=== PATIENT | male | born 1940 | race African-American/Black ===

== ENCOUNTER 2022-03-06 18:16 | Inpatient (IN) | payer MEDICARE ==
[~2022-03-06 18:16] MED LIST: Iopamidol-370 76% 500 ML 1 ML ONE
[2022-03-06] MEDS ORDERED: FENTANYL 50 MCG/ML 1 ML VIAL ONE ×2 (18:41→19:15)
[2022-03-06] MEDS ORDERED: Succinylcholine Chloride 100 MG/5 ML SYRINGE FS ONE (18:45)
[2022-03-06 18:59] LABS: #Monocytes 0.4 thou/uL (0.11-0.59); #Neutrophils 4.7 thou/uL (1.40-6.50); %Basophils 0.2 % (0.0-1.0); %Eosinophils 0.3 % (0.0-10.0); %Lymphocytes 15.8 % (21.0-51.0); %Neutrophils 77.7 % (42.0-75.0); Hemoglobin 14.5 g/dL (14.0-18.0); Mean Corpuscular Hemoglobin 34.7 pg (27.0-31.0); Mean Platelet Volume 7.6 fL (7.4-10.4); Platelet Count 414 10x3/uL (130-400); RBC Distribution Width 12.3 % (11.5-14.5); Red Blood Cell (RBC) Count 4.17 mill/uL (4.70-6.10)
[2022-03-06 19:19] LABS: ALT (SGPT) Less than 7 U/L (8-55); AST (SGOT) 23 U/L (5-34); Albumin 3.6 g/dL (3.4-4.8); Alkaline Phosphatase 65 U/L (40-110); Anion Gap 27 mmol/L (10-20); BUN (Urea Nitrogen) 84 mg/dL (8.4-25.7); Bilirubin, Total 0.6 mg/dL (0.2-1.2); Calc. Creatinine Clearance 0 mL/min (70-130); Calcium 9.7 mg/dL (7.8-10.44); Carbon Dioxide 10 mmol/L (23-31); Chloride 99 mmol/L (98-107); Estimated GFR 15; Globulin 2.7 g/dL (2.4-3.5); Glucose 193 mg/dL (83-110); Potassium 4.2 mmol/L (3.5-5.1); Protein, Total 6.3 g/dL (5.8-8.1); Sodium 132 mmol/L (136-145)
[2022-03-06] MEDS ORDERED: Fentanyl CADD 100 ML IV SCH (19:30)
[2022-03-06 19:33] LABS: Analyzer IN Cardio ER; Base Excess (BEa) -10.3 mEq/L (-2.0 to +3.0); Carboxyhemoglobin (COHb) 0.7 gm% (0.0-3.0); O2 Tension (PaO2), arterial 597.5 mmHg (> 60.0); Potassium - ABG Lab 3.26 mmol/L (3.70-5.30); pH, Arterial 7.39 (7.35-7.45)
[2022-03-06 19:41] LABS: CKMB 1.4 ng/mL (0-6.6)
[2022-03-06 19:58] LABS: Actual Bicarbonate (HCO3a) 12.4 mEq/L (22-28); CO2 Tension 20.9 mmHg (35.0-45.0)
[2022-03-06 19:59] LABS: Puncture Site LBA
[2022-03-06 20:00] LABS: ALV-art Gradient 89.375 mmHg (0-20)
[2022-03-06 20:35] LABS: Bacteria/HPF None Seen HPF (None Seen); Bilirubin Negative (Negative); Blood, Urine 2+ (Negative); Clarity Clear (Clear); Glucose, Urine (Dipstick) Normal (Negative); Ketone, Urine Trace mg/dL (Negative); Leukocyte Negative Leu/uL (Negative); Nitrite Negative (Negative); Protein, Urine (Dipstick) 50 mg/dL (Neg-Trace); Specific Gravity, Urine 1.018 (1.002-1.036); Squamous Epithelial 0-3 HPF (0-3); WBC/HPF 0-3 HPF (0-3)
[2022-03-06 21:06] LABS: SARS-CoV-2 NAA Rapid Test Not Detected (NotDetected)
[2022-03-06] MEDS ORDERED: Pantoprazole 40 MG VIAL ONE (21:23)
[2022-03-06] MEDS ORDERED: Vancomycin 1 GM/200 ML (FROZEN) BAG ONE (21:31)
[2022-03-06] MEDS ORDERED: Enoxaparin Sodium 40 MG/0.4 ML SYRINGE ONE (21:32)
[2022-03-06] MEDS ORDERED: Piperacillin/Tazobactam 4.5 GM VIAL ONE (21:32)
[2022-03-06] MEDS ORDERED: Pantoprazole 80 MG in Sodium Chloride 0.9% 100 ML IVPB SCH (21:45)
[2022-03-06 21:59] LABS: Lactic Acid 4.7 mmol/L (0.5-2.2)
[2022-03-06] MEDS ORDERED: Electrolyte Replacement Protocol 1 EACH IVPB ONE (22:14)
[2022-03-06] MEDS ORDERED: Ventilator Sedation Protocol 1 EACH FS SCH (22:15)
[2022-03-06] MEDS ORDERED: Sodium Chloride 0.9% 1,000 ML IV SCH ×2 (22:30)
[2022-03-06] MEDS ORDERED: Propofol 1,000 MG/100 ML VIAL IV PRN (22:30)
[2022-03-06] MEDS ORDERED: DISCONTINUE PREVIOUS NARCOTIC PAIN MEDICATIONS AND BENZODIAZEPINES FS SCH (22:30)
[2022-03-06] MEDS ORDERED: Propofol BOLUS 1,000 MG/100 ML VIAL IV PRN (22:30)
[2022-03-06] MEDS ORDERED: Fentanyl BOLUS 250 ML IVPB PRN (22:30)
[2022-03-06] MEDS ORDERED: Morphine 4 MG/ML VIAL SLOW IVP PRN (22:30)
[2022-03-06] MEDS ORDERED: Midazolam HCl 2 mg/2 ml Vial SLOW IVP PRN (22:30)
[2022-03-06] MEDS: NOREPINEPHRINE 8 MG/250 ML-D5W 250 ML IVPB PRN (22:54)
[2022-03-07 00:50] LABS: Actual Bicarbonate (HCO3a) 16.3 mEq/L (22-28); Base Excess (BEa) -5.7 mEq/L (-2.0 to +3.0); Calcium, Ionized (arterial) 1.05 mmol/L (1.12-1.30); Carboxyhemoglobin (COHb) 0.1 gm% (0.0-3.0); Hemoglobin (Hb) 14.3 g/dL (14.0-18.0); O2 Tension (PaO2), arterial 176.1 mmHg (> 60.0); Potassium - ABG Lab 3.86 mmol/L (3.70-5.30); pH, Arterial 7.45 (7.35-7.45)
[2022-03-07 00:52] LABS: Puncture Site LBA
[2022-03-07] MEDS: Piperacillin/Tazobactam 3.375 GM in Sodium Chloride 0.9% 100 ML IVPB SCH ×2 (01:49→14:11)
[2022-03-07] MEDS: NOREPINEPHRINE 8 MG/250 ML-D5W 250 ML IVPB PRN ×2 (01:49→08:43)
[2022-03-07] MEDS ORDERED: Pantoprazole 80 MG, Admixture Fee 1 EACH in Sodium Chloride 0.9% 100 ML IVPB SCH (06:30)
[2022-03-07] MEDS: Pantoprazole 40 MG VIAL IVP SCH (09:45)
[2022-03-07] MEDS: Heparin 5,000 UNITS/ML VIAL SC SCH ×2 (09:45→19:57)
[2022-03-07] MEDS: Lactated Ringer's 1,000 ML IV SCH ×2 (09:45→19:57)
[2022-03-07] MEDS: Senokot S 8.6-50 MG TAB PO SCH (19:57)
[2022-03-08] MEDS: Piperacillin/Tazobactam 3.375 GM in Sodium Chloride 0.9% 100 ML IVPB SCH ×2 (01:41→14:16)
[2022-03-08] MEDS: Lactated Ringer's 1,000 ML IV SCH (04:11)
[2022-03-08 04:45] LABS: #Lymphocytes 0.7 thou/uL (1.20-3.40); #Monocytes 0.4 thou/uL (0.11-0.59); #Neutrophils 6.6 thou/uL (1.40-6.50); %Lymphocytes 9.2 % (21.0-51.0); %Monocytes 4.6 % (0.0-10.0); %Neutrophils 86.2 % (42.0-75.0); Hemoglobin 10.7 g/dL (14.0-18.0); Mean Corpuscular HGB CONC 32.4 g/dL (32.0-36.0); Mean Corpuscular Hemoglobin 34.2 pg (27.0-31.0); Mean Platelet Volume 8.4 fL (7.4-10.4); Platelet Count 198 10x3/uL (130-400); RBC Distribution Width 12.3 % (11.5-14.5); Red Blood Cell (RBC) Count 3.13 mill/uL (4.70-6.10); White Blood Cell (WBC) Count 7.6 10x3/uL (4.8-10.8)
[2022-03-08 04:58] LABS: Anion Gap 17 mmol/L (10-20); BUN (Urea Nitrogen) 78 mg/dL (8.4-25.7); Calc. Creatinine Clearance 7 mL/min (70-130); Calcium 7.6 mg/dL (7.8-10.44); Carbon Dioxide 19 mmol/L (23-31); Chloride 97 mmol/L (98-107); Estimated GFR 13; Glucose 75 mg/dL (83-110); Potassium 4.2 mmol/L (3.5-5.1); Sodium 129 mmol/L (136-145)
[2022-03-08 06:51] LABS: Actual Bicarbonate (HCO3a) 18.5 mEq/L (22-28); Base Excess (BEa) -5.2 mEq/L (-2.0 to +3.0); CO2 Tension 30.5 mmHg (35.0-45.0); Calcium, Ionized (arterial) 1.04 mmol/L (1.12-1.30); Carboxyhemoglobin (COHb) 0.1 gm% (0.0-3.0); Hemoglobin (Hb) 11.7 g/dL (14.0-18.0); Potassium - ABG Lab 4.13 mmol/L (3.70-5.30)
[2022-03-08 06:52] LABS: ALV-art Gradient 130.075 mmHg (0-20); Puncture Site RRA
[2022-03-08] MEDS: Pantoprazole 40 MG VIAL IVP SCH (09:04)
[2022-03-08] MEDS: Polyethylene Glycol 3350 17 GM Packet PER TUBE SCH (09:04)
[2022-03-08] MEDS: Senokot S 8.6-50 MG TAB PO SCH ×2 (09:04→20:59)
[2022-03-08] MEDS: Heparin 5,000 UNITS/ML VIAL SC SCH ×2 (09:04→21:05)
[2022-03-08] MEDS ORDERED: Furosemide 20 MG/2 ML VIAL SLOW IVP SCH (09:45)
[2022-03-08] MEDS: Scopolamine 1.5 mg/72 hour Patch TD SCH (10:18)
[2022-03-08 17:50] LABS: Creatinine, Urine Less than 20.00 mg/dL (63-166); Protein, Urine Random Quant 26 mg/dL (1-14); Sodium, Urine 94 mmol/L (Not Available); Urea Nitrogen, Random Urine 157 mg/dl
[2022-03-08 18:13] LABS: Albumin 2.4 g/dL (3.4-4.8); Anion Gap 18 mmol/L (10-20); BUN (Urea Nitrogen) 79 mg/dL (8.4-25.7); BUN/Creatinine Ratio 17.83; CK (CPK) 83 U/L (30-200); Calc. Creatinine Clearance 7 mL/min (70-130); Calcium 7.7 mg/dL (7.8-10.44); Carbon Dioxide 18 mmol/L (23-31); Chloride 98 mmol/L (98-107); Estimated GFR 13; Glucose 68 mg/dL (83-110); Phosphorus 4.9 mg/dL (2.3-4.7); Potassium 4.4 mmol/L (3.5-5.1); Sodium 130 mmol/L (136-145)
[2022-03-08] MEDS ORDERED: Dextrose 5%-Lactated Ringers 1,000 ML IV SCH (18:45)
[2022-03-08] MEDS: Sodium Bicarbonate Tab 325 MG TAB PO SCH (20:59)
[2022-03-08] MEDS: Albumin 25% 25 GM/100 ML BOT IVPB SCH (21:05)
[2022-03-09] MEDS ORDERED: Sodium Bicarb 50 MEQ/50 ML Abboject 8.4% SYRINGE ONE (01:13)
[2022-03-09] MEDS ORDERED: Atropine Sulfate 1 mg/10 ml Syringe ONE (01:13)
[2022-03-09] MEDS ORDERED: EPINEPHrine 1 MG/10 ML Abboject SYRINGE ONE (01:13)
[2022-03-09 01:26] LABS: Actual Bicarbonate (HCO3a) 18.8 mEq/L (22-28); Base Excess (BEa) -7.2 mEq/L (-2.0 to +3.0); CO2 Tension 39.5 mmHg (35.0-45.0); Calcium, Ionized (arterial) 1.01 mmol/L (1.12-1.30); Carboxyhemoglobin (COHb) 0.3 gm% (0.0-3.0); Hemoglobin (Hb) 10.6 g/dL (14.0-18.0); O2 Tension (PaO2), arterial 84.6 mmHg (> 60.0)
[2022-03-09 01:35] LABS: Puncture Site LRA
[2022-03-09 01:37] LABS: ALV-art Gradient 579.025 mmHg (0-20)
[2022-03-09] MEDS ORDERED: Morphine 4 MG/ML VIAL SLOW IVP PRN (01:45)
[2022-03-09] MEDS ORDERED: Fentanyl CADD 100 ML IV SCH (01:45)
[2022-03-09] MEDS ORDERED: NOREPINEPHRINE 8 MG/250 ML-D5W 250 ML IVPB SCH (01:45)
[2022-03-09] MEDS ORDERED: Fentanyl BOLUS 250 ML IVPB PRN (01:45)
[2022-03-09] MEDS ORDERED: Ventilator Sedation Protocol 1 EACH FS SCH (01:45)
[2022-03-09] MEDS ORDERED: Propofol 1,000 MG/100 ML VIAL IV PRN (01:45)
[2022-03-09] MEDS ORDERED: Propofol BOLUS 1,000 MG/100 ML VIAL IV PRN (01:45)
[2022-03-09] MEDS ORDERED: Fentanyl CADD 100 ML ONE (01:49)
[2022-03-09 01:54] LABS: Band 20 % (5-11); Hemoglobin 9.5 g/dL (14.0-18.0); Lymphocytes 31 % (21-51); MDiff Complete? YES; Mean Corpuscular HGB CONC 34.1 g/dL (32.0-36.0); Mean Corpuscular Hemoglobin 35.9 pg (27.0-31.0); Mean Platelet Volume 8.3 fL (7.4-10.4); Monocytes 3 % (0-10); Neutrophil 46 % (42-75); Platelet Count 192 10x3/uL (130-400); RBC Distribution Width 12.2 % (11.5-14.5); Red Blood Cell (RBC) Count 2.65 mill/uL (4.70-6.10)
[2022-03-09 01:57] LABS: Lactic Acid 5.7 mmol/L (0.5-2.2)
[2022-03-09] MEDS: Albumin 25% 25 GM/100 ML BOT IVPB SCH ×4 (02:03→23:15)
[2022-03-09 02:05] LABS: Anion Gap 23 mmol/L (10-20); BUN (Urea Nitrogen) 83 mg/dL (8.4-25.7); Calc. Creatinine Clearance 7 mL/min (70-130); Calcium 7.7 mg/dL (7.8-10.44); Carbon Dioxide 17 mmol/L (23-31); Chloride 97 mmol/L (98-107); Estimated GFR 12; Glucose 150 mg/dL (83-110); Magnesium 1.8 mg/dL (1.6-2.6); Potassium 4.3 mmol/L (3.5-5.1); Sodium 133 mmol/L (136-145)
[2022-03-09 02:10] LABS: Troponin I 0.143 ng/mL (< 0.028)
[2022-03-09] MEDS: Piperacillin/Tazobactam 3.375 GM in Sodium Chloride 0.9% 100 ML IVPB SCH ×2 (02:13→15:23)
[2022-03-09 02:54] LABS: ALT (SGPT) 12 U/L (8-55); AST (SGOT) 29 U/L (5-34); Albumin 2.5 g/dL (3.4-4.8); Alkaline Phosphatase 42 U/L (40-110); Bilirubin, Direct 0.2 mg/dL (0.1-0.3); Bilirubin, Total 0.6 mg/dL (0.2-1.2); Protein, Total 4.8 g/dL (5.8-8.1)
[2022-03-09] MEDS: Sodium Bicarbonate 150 MEQ in Dextrose 5% in Water 1,000 ML IV SCH ×2 (03:29→15:27)
[2022-03-09 04:48] LABS: Lactic Acid 2.8 mmol/L (0.5-2.2)
[2022-03-09 04:52] LABS: Magnesium 1.8 mg/dL (1.6-2.6)
[2022-03-09 04:55] LABS: Troponin I 0.136 ng/mL (< 0.028)
[2022-03-09 08:59] LABS: Iron Less than 8 ug/dL (65-175); Iron Binding Capacity, Total 85 mcg/dL (261-462)
[2022-03-09 09:01] LABS: Troponin I 0.147 ng/mL (< 0.028)
[2022-03-09] MEDS: Heparin 5,000 UNITS/ML VIAL SC SCH ×2 (09:42→20:54)
[2022-03-09] MEDS: Pantoprazole 40 MG VIAL IVP SCH (09:46)
[2022-03-09] MEDS: Sodium Bicarbonate Tab 325 MG TAB PO SCH ×3 (09:58→20:54)
[2022-03-09] MEDS: Polyethylene Glycol 3350 17 GM Packet PER TUBE SCH (09:58)
[2022-03-09] MEDS: Senokot S 8.6-50 MG TAB PO SCH ×2 (10:01→20:54)
[2022-03-10] MEDS: Piperacillin/Tazobactam 3.375 GM in Sodium Chloride 0.9% 100 ML IVPB SCH ×2 (01:10→15:10)
[2022-03-10] MEDS: Sodium Bicarbonate 150 MEQ in Dextrose 5% in Water 1,000 ML IV SCH (01:34)
[2022-03-10 04:32] LABS: Anion Gap 22 mmol/L (10-20); BUN (Urea Nitrogen) 75 mg/dL (8.4-25.7); Calc. Creatinine Clearance 7 mL/min (70-130); Calcium 7.9 mg/dL (7.8-10.44); Carbon Dioxide 26 mmol/L (23-31); Chloride 88 mmol/L (98-107); Estimated GFR 12; Glucose 133 mg/dL (83-110); Magnesium 1.9 mg/dL (1.6-2.6); Potassium 3.2 mmol/L (3.5-5.1); Sodium 133 mmol/L (136-145)
[2022-03-10] MEDS: Albumin 25% 25 GM/100 ML BOT IVPB SCH (05:18)
[2022-03-10 05:53] LABS: #Lymphocytes 0.4 thou/uL (1.20-3.40); #Monocytes 0.2 thou/uL (0.11-0.59); #Neutrophils 2.4 thou/uL (1.40-6.50); %Eosinophils 0.1 % (0.0-10.0); %Lymphocytes 13.9 % (21.0-51.0); %Monocytes 5.2 % (0.0-10.0); %Neutrophils 80.7 % (42.0-75.0); Hemoglobin 6.8 g/dL (14.0-18.0); Mean Corpuscular HGB CONC 36.3 g/dL (32.0-36.0); Mean Corpuscular Hemoglobin 37.8 pg (27.0-31.0); Mean Platelet Volume 8.6 fL (7.4-10.4); Platelet Count 110 10x3/uL (130-400); Platelet Morphology Comment Appears Decreased; Red Blood Cell (RBC) Count 1.81 mill/uL (4.70-6.10)
[2022-03-10] MEDS: Dextrose 5%-Lactated Ringers 1,000 ML IV SCH ×2 (08:19→21:43)
[2022-03-10] MEDS ORDERED: Potassium Chloride 20 MEQ in Premix Bag 1 BAG IVPB SCH ×2 (08:30)
[2022-03-10] MEDS: Polyethylene Glycol 3350 17 GM Packet PER TUBE SCH (08:34)
[2022-03-10] MEDS: Sodium Bicarbonate Tab 325 MG TAB PO SCH ×3 (08:34→22:29)
[2022-03-10] MEDS: Heparin 5,000 UNITS/ML VIAL SC SCH (08:34)
[2022-03-10] MEDS: Senokot S 8.6-50 MG TAB PO SCH ×3 (08:34→22:29)
[2022-03-10] MEDS: Pantoprazole 40 MG VIAL IVP SCH (08:35)
[2022-03-10 15:04] LABS: Hemoglobin 6.9 g/dL (14.0-18.0)
[2022-03-11] MEDS: Piperacillin/Tazobactam 3.375 GM in Sodium Chloride 0.9% 100 ML IVPB SCH ×2 (01:22→14:10)
[2022-03-11] MEDS: Dextrose 5%-Lactated Ringers 1,000 ML IV SCH ×2 (01:23→14:47)
[2022-03-11] MEDS: Morphine CADD 100 ML IVPB SCH (06:16)
[2022-03-11 08:06] LABS: #Lymphocytes 0.6 thou/uL (1.20-3.40); #Monocytes 0.3 thou/uL (0.11-0.59); %Eosinophils 0.8 % (0.0-10.0); %Lymphocytes 12.1 % (21.0-51.0); %Monocytes 5.4 % (0.0-10.0); %Neutrophils 81.7 % (42.0-75.0); Hemoglobin 8.1 g/dL (14.0-18.0); Mean Corpuscular HGB CONC 32.4 g/dL (32.0-36.0); Mean Corpuscular Hemoglobin 35.4 pg (27.0-31.0); Mean Platelet Volume 8.6 fL (7.4-10.4); Platelet Count 95 10x3/uL (130-400); RBC Distribution Width 12.4 % (11.5-14.5); White Blood Cell (WBC) Count 4.9 10x3/uL (4.8-10.8)
[2022-03-11 08:24] LABS: Anion Gap 20 mmol/L (10-20); BUN (Urea Nitrogen) 64 mg/dL (8.4-25.7); Calc. Creatinine Clearance 8 mL/min (70-130); Calcium 8.2 mg/dL (7.8-10.44); Carbon Dioxide 26 mmol/L (23-31); Chloride 90 mmol/L (98-107); Estimated GFR 12; Glucose 145 mg/dL (83-110); Magnesium 1.6 mg/dL (1.6-2.6); Potassium 3.3 mmol/L (3.5-5.1); Sodium 133 mmol/L (136-145)
[2022-03-11] MEDS ORDERED: Magnesium Sulfate 4 GM in Sodium Chloride 0.9% 250 ML 250 ML IVPB SCH (08:30)
[2022-03-11] MEDS ORDERED: Potassium Chloride 40 MEQ in Premix Bag 1 BAG IVPB SCH (08:30)
[2022-03-11] MEDS ORDERED: Magnesium Sulfate In Water 4 GM in Premix Bag 1 BAG IVPB SCH (08:45)
[2022-03-11] MEDS: Potassium Chloride 20 MEQ in Premix Bag 1 BAG IVPB SCH ×2 (09:01→11:18)
[2022-03-11] MEDS: Pantoprazole 40 MG VIAL IVP SCH (09:01)
[2022-03-11] MEDS: Scopolamine 1.5 mg/72 hour Patch TD SCH (09:01)
[2022-03-11 09:09] LABS: Burr Cells SLIGHT = 2-5 cells (100X) (0-1/hpf); MDiff Complete? YES; Macrocytosis SLIGHT = 6-15 cells (100X) (0-5/hpf); Platelet Morphology Comment Appears Decreased; Polychromasia SLIGHT = 2-3 cells (100X) (0-2/hpf); Schistocytes SLIGHT = 2-5 cells (100X) (0-1/hpf)
[2022-03-11] MEDS: Sodium Bicarbonate Tab 325 MG TAB PO SCH ×3 (09:10→19:26)
[2022-03-11] MEDS: Polyethylene Glycol 3350 17 GM Packet PER TUBE SCH (09:10)
[2022-03-11] MEDS: Senokot S 8.6-50 MG TAB PO SCH ×2 (09:10→19:44)
[2022-03-12] MEDS: Dextrose 5%-Lactated Ringers 1,000 ML IV SCH ×2 (01:23→10:55)
[2022-03-12] MEDS: Morphine CADD 100 ML IVPB SCH ×2 (01:58→20:28)
[2022-03-12] MEDS: Piperacillin/Tazobactam 3.375 GM in Sodium Chloride 0.9% 100 ML IVPB SCH ×2 (02:28→13:59)
[2022-03-12] MEDS: Midazolam HCl 2 mg/2 ml Vial SLOW IVP PRN (03:45)
[2022-03-12] MEDS: Pantoprazole 40 MG VIAL IVP SCH (09:07)
[2022-03-12] MEDS: Sodium Bicarbonate Tab 325 MG TAB PO SCH ×4 (09:08→22:27)
[2022-03-12] MEDS: Polyethylene Glycol 3350 17 GM Packet PER TUBE SCH (09:08)
[2022-03-12] MEDS: Senokot S 8.6-50 MG TAB PO SCH ×2 (09:08→21:30)
[2022-03-12 09:35] LABS: #Eosinphils 0.1 thou/uL (0.0-0.7); #Lymphocytes 0.6 thou/uL (1.20-3.40); #Monocytes 0.4 thou/uL (0.11-0.59); #Neutrophils 3.8 thou/uL (1.40-6.50); %Basophils 0.3 % (0.0-1.0); %Eosinophils 1.3 % (0.0-10.0); %Lymphocytes 11.8 % (21.0-51.0); %Monocytes 7.6 % (0.0-10.0); %Neutrophils 79.1 % (42.0-75.0); Hemoglobin 8.1 g/dL (14.0-18.0); Mean Corpuscular HGB CONC 32.9 g/dL (32.0-36.0); Mean Corpuscular Hemoglobin 35.5 pg (27.0-31.0); Mean Platelet Volume 10.8 fL (7.4-10.4); Platelet Count 82 10x3/uL (130-400); RBC Distribution Width 12.6 % (11.5-14.5); Red Blood Cell (RBC) Count 2.27 mill/uL (4.70-6.10); White Blood Cell (WBC) Count 4.7 10x3/uL (4.8-10.8)
[2022-03-12 09:45] LABS: Anion Gap 19 mmol/L (10-20); BUN (Urea Nitrogen) 62 mg/dL (8.4-25.7); Calc. Creatinine Clearance 8 mL/min (70-130); Calcium 8.4 mg/dL (7.8-10.44); Carbon Dioxide 26 mmol/L (23-31); Chloride 93 mmol/L (98-107); Estimated GFR 12; Glucose 143 mg/dL (83-110); Magnesium 2.6 mg/dL (1.6-2.6); Potassium 3.8 mmol/L (3.5-5.1); Sodium 134 mmol/L (136-145)
[2022-03-12 09:49] LABS: Albumin 2.7 g/dL (3.4-4.8); Phosphorus 3.1 mg/dL (2.3-4.7)
[2022-03-12] MEDS: Albumin 25% 25 GM/100 ML BOT IVPB SCH ×3 (10:42→22:03)
[2022-03-12] MEDS: Dextrose 5 % And 0.9 % NaCl 1,000 ML IV SCH ×2 (10:44→20:36)
[2022-03-12] MEDS ORDERED: Iron, Sodium Ferric Gluconate 250 MG in Sodium Chloride 0.9% 250 ML 250 ML IVPB SCH (14:00)
[2022-03-12] MEDS: Iron Sucrose Complex 200 MG in Sodium Chloride 0.9% 100 ML IVPB SCH (16:13)
[2022-03-13] MEDS: Piperacillin/Tazobactam 3.375 GM in Sodium Chloride 0.9% 100 ML IVPB SCH ×2 (01:15→14:57)
[2022-03-13 04:41] LABS: #Eosinphils 0.1 thou/uL (0.0-0.7); #Lymphocytes 0.4 thou/uL (1.20-3.40); #Monocytes 0.2 thou/uL (0.11-0.59); #Neutrophils 2.5 thou/uL (1.40-6.50); %Lymphocytes 11.4 % (21.0-51.0); %Monocytes 5.8 % (0.0-10.0); %Neutrophils 80.8 % (42.0-75.0); Hemoglobin 6.1 g/dL (14.0-18.0); Mean Corpuscular HGB CONC 32.9 g/dL (32.0-36.0); Mean Corpuscular Hemoglobin 35.2 pg (27.0-31.0); Mean Platelet Volume 9.2 fL (7.4-10.4); Platelet Count 46 10x3/uL (130-400); RBC Distribution Width 12.5 % (11.5-14.5); Red Blood Cell (RBC) Count 1.73 mill/uL (4.70-6.10)
[2022-03-13 04:50] LABS: Anion Gap 16 mmol/L (10-20); BUN (Urea Nitrogen) 54 mg/dL (8.4-25.7); Calc. Creatinine Clearance 8 mL/min (70-130); Calcium 7.8 mg/dL (7.8-10.44); Carbon Dioxide 24 mmol/L (23-31); Chloride 96 mmol/L (98-107); Estimated GFR 13; Glucose 98 mg/dL (83-110); Potassium 3.4 mmol/L (3.5-5.1); Sodium 133 mmol/L (136-145)
[2022-03-13] MEDS: Dextrose 5 % And 0.9 % NaCl 1,000 ML IV SCH ×2 (05:34→17:00)
[2022-03-13] MEDS: Midazolam HCl 2 mg/2 ml Vial SLOW IVP PRN ×5 (05:34→22:31)
[2022-03-13 08:33] LABS: Glucose 102 mg/dL (83-110)
[2022-03-13] MEDS: Polyethylene Glycol 3350 17 GM Packet PER TUBE SCH (10:41)
[2022-03-13] MEDS: Pantoprazole 40 MG VIAL IVP SCH (10:41)
[2022-03-13] MEDS: Senokot S 8.6-50 MG TAB PO SCH ×2 (10:42→20:27)
[2022-03-13] MEDS: Sodium Bicarbonate Tab 325 MG TAB PO SCH ×2 (10:44→15:47)
[2022-03-13 13:35] LABS: Glucose 91 mg/dL (83-110)
[2022-03-13] MEDS: Iron Sucrose Complex 200 MG in Sodium Chloride 0.9% 100 ML IVPB SCH (16:59)
[2022-03-14] MEDS: Midazolam HCl 2 mg/2 ml Vial SLOW IVP PRN ×9 (01:23→23:07)
[2022-03-14] MEDS: Dextrose 5 % And 0.9 % NaCl 1,000 ML IV SCH ×2 (01:55→14:26)
[2022-03-14] MEDS: Piperacillin/Tazobactam 3.375 GM in Sodium Chloride 0.9% 100 ML IVPB SCH ×2 (01:55→14:26)
[2022-03-14] MEDS: Morphine CADD 100 ML IVPB SCH (02:17)
[2022-03-14 04:03] LABS: #Lymphocytes 0.6 thou/uL (1.20-3.40); #Monocytes 0.4 thou/uL (0.11-0.59); #Neutrophils 3.1 thou/uL (1.40-6.50); %Eosinophils 1.1 % (0.0-10.0); %Lymphocytes 14.4 % (21.0-51.0); %Monocytes 9.5 % (0.0-10.0); Hemoglobin 7.3 g/dL (14.0-18.0); Mean Corpuscular HGB CONC 34.3 g/dL (32.0-36.0); Mean Platelet Volume 10.5 fL (7.4-10.4); Platelet Count 42 10x3/uL (130-400); RBC Distribution Width 12.5 % (11.5-14.5); Red Blood Cell (RBC) Count 2.03 mill/uL (4.70-6.10); White Blood Cell (WBC) Count 4.1 10x3/uL (4.8-10.8)
[2022-03-14 04:12] LABS: Albumin 2.7 g/dL (3.4-4.8); Anion Gap 16 mmol/L (10-20); BUN (Urea Nitrogen) 52 mg/dL (8.4-25.7); Calc. Creatinine Clearance 8 mL/min (70-130); Calcium 7.9 mg/dL (7.8-10.44); Carbon Dioxide 24 mmol/L (23-31); Chloride 102 mmol/L (98-107); Estimated GFR 12; Glucose 105 mg/dL (83-110); Phosphorus 2.7 mg/dL (2.3-4.7); Potassium 3.5 mmol/L (3.5-5.1); Sodium 138 mmol/L (136-145)
[2022-03-14] MEDS: Pantoprazole 40 MG VIAL IVP SCH (08:57)
[2022-03-14] MEDS: Senokot S 8.6-50 MG TAB PO SCH ×2 (08:57→21:53)
[2022-03-14] MEDS: Polyethylene Glycol 3350 17 GM Packet PER TUBE SCH (08:58)
[2022-03-14] MEDS: Scopolamine 1.5 mg/72 hour Patch TD SCH (08:58)
[2022-03-14] MEDS: Iron Sucrose Complex 200 MG in Sodium Chloride 0.9% 100 ML IVPB SCH (15:46)
[2022-03-14] MEDS ORDERED: Dextrose 5 % And 0.9 % NaCl 1,000 ML IV SCH (16:11)
[2022-03-14] MEDS: Albumin 25% 25 GM/100 ML BOT IVPB SCH (21:52)
[2022-03-15] MEDS: Albumin 25% 25 GM/100 ML BOT IVPB SCH ×3 (00:51→18:39)
[2022-03-15] MEDS: Midazolam HCl 2 mg/2 ml Vial SLOW IVP PRN ×9 (01:55→23:50)
[2022-03-15] MEDS: Piperacillin/Tazobactam 3.375 GM in Sodium Chloride 0.9% 100 ML IVPB SCH ×2 (01:55→13:18)
[2022-03-15 04:43] LABS: #Lymphocytes 0.4 thou/uL (1.20-3.40); #Monocytes 0.3 thou/uL (0.11-0.59); #Neutrophils 2.5 thou/uL (1.40-6.50); %Basophils 0.9 % (0.0-1.0); %Eosinophils 0.9 % (0.0-10.0); %Monocytes 8.8 % (0.0-10.0); %Neutrophils 77.4 % (42.0-75.0); Hemoglobin 6.8 g/dL (14.0-18.0); Mean Corpuscular HGB CONC 33.7 g/dL (32.0-36.0); Mean Corpuscular Hemoglobin 35.7 pg (27.0-31.0); Mean Platelet Volume 10.6 fL (7.4-10.4); Platelet Count 39 10x3/uL (130-400); RBC Distribution Width 12.5 % (11.5-14.5); White Blood Cell (WBC) Count 3.3 10x3/uL (4.8-10.8)
[2022-03-15 05:04] LABS: Anion Gap 14 mmol/L (10-20); BUN (Urea Nitrogen) 47 mg/dL (8.4-25.7); Calc. Creatinine Clearance 9 mL/min (70-130); Calcium 8.1 mg/dL (7.8-10.44); Carbon Dioxide 22 mmol/L (23-31); Chloride 105 mmol/L (98-107); Estimated GFR 12; Glucose 112 mg/dL (83-110); Potassium 2.9 mmol/L (3.5-5.1); Sodium 138 mmol/L (136-145)
[2022-03-15] MEDS: Potassium Chloride 20 MEQ in Premix Bag 1 BAG IVPB SCH ×2 (06:36→08:52)
[2022-03-15] MEDS ORDERED: Potassium Phosphate 30 MMOL in Sodium Chloride 0.9% 250 ML 250 ML IVPB SCH (07:30)
[2022-03-15] MEDS ORDERED: D5 LR w/20 mEq KCL 1,000 ML IV SCH (08:45)
[2022-03-15] MEDS: Senokot S 8.6-50 MG TAB PO SCH ×2 (08:52→20:30)
[2022-03-15] MEDS: Polyethylene Glycol 3350 17 GM Packet PER TUBE SCH (08:52)
[2022-03-15] MEDS: Pantoprazole 40 MG VIAL IVP SCH (08:52)
[2022-03-15] MEDS: Morphine CADD 100 ML IVPB SCH (09:22)
[2022-03-15] MEDS: Dextrose 5%-Lactated Ringers 1,000 ML IV SCH (10:04)
[2022-03-15 10:39] LABS: Anion Gap 15 mmol/L (10-20); BUN (Urea Nitrogen) 46 mg/dL (8.4-25.7); Calc. Creatinine Clearance 11 mL/min (70-130); Calcium 8.1 mg/dL (7.8-10.44); Carbon Dioxide 20 mmol/L (23-31); Chloride 106 mmol/L (98-107); Estimated GFR 12; Glucose 95 mg/dL (83-110); Potassium 3.4 mmol/L (3.5-5.1); Sodium 138 mmol/L (136-145)
[2022-03-15] MEDS ORDERED: Dexmedetomidine In 0.9 % NaCl 100 ML IVPB SCH (15:30)
[2022-03-15] MEDS: Iron Sucrose Complex 200 MG in Sodium Chloride 0.9% 100 ML IVPB SCH (16:04)
[2022-03-15] MEDS ORDERED: Furosemide 40 MG/4 ML VIAL SLOW IVP SCH (16:30)
[2022-03-16] MEDS: Albumin 25% 25 GM/100 ML BOT IVPB SCH (00:50)
[2022-03-16] MEDS: Midazolam HCl 2 mg/2 ml Vial SLOW IVP PRN ×5 (01:03→12:07)
[2022-03-16 03:26] LABS: #Lymphocytes 0.7 thou/uL (1.20-3.40); #Monocytes 0.5 thou/uL (0.11-0.59); #Neutrophils 2.9 thou/uL (1.40-6.50); %Basophils 0.4 % (0.0-1.0); %Eosinophils 0.8 % (0.0-10.0); %Lymphocytes 16.6 % (21.0-51.0); %Monocytes 11.1 % (0.0-10.0); %Neutrophils 71.1 % (42.0-75.0); Hemoglobin 9.6 g/dL (14.0-18.0); Mean Corpuscular HGB CONC 33.7 g/dL (32.0-36.0); Mean Corpuscular Hemoglobin 34.1 pg (27.0-31.0); Mean Platelet Volume 10.3 fL (7.4-10.4); Platelet Count 40 10x3/uL (130-400); RBC Distribution Width 15.2 % (11.5-14.5); White Blood Cell (WBC) Count 4.1 10x3/uL (4.8-10.8)
[2022-03-16 03:40] LABS: Anion Gap 20 mmol/L (10-20); BUN (Urea Nitrogen) 43 mg/dL (8.4-25.7); Calc. Creatinine Clearance 11 mL/min (70-130); Calcium 8.3 mg/dL (7.8-10.44); Carbon Dioxide 17 mmol/L (23-31); Chloride 107 mmol/L (98-107); Estimated GFR 12; Glucose 101 mg/dL (83-110); Potassium 3.9 mmol/L (3.5-5.1); Sodium 140 mmol/L (136-145)
[2022-03-16] MEDS: Dextrose 5%-Lactated Ringers 1,000 ML IV SCH (05:56)
[2022-03-16] MEDS: Morphine CADD 100 ML IVPB SCH ×2 (06:52→21:14)
[2022-03-16] MEDS: Sodium Bicarbonate 150 MEQ in Dextrose 5% in Water 1,000 ML IV SCH (08:10)
[2022-03-16] MEDS: Pantoprazole 40 MG VIAL IVP SCH (08:37)
[2022-03-16] MEDS: Furosemide 40 MG/4 ML VIAL SLOW IVP SCH ×2 (08:37→20:36)
[2022-03-16] MEDS: Polyethylene Glycol 3350 17 GM Packet PER TUBE SCH (11:14)
[2022-03-16] MEDS: Senokot S 8.6-50 MG TAB PO SCH ×3 (11:15→20:44)
[2022-03-16] MEDS ORDERED: Propofol BOLUS 1,000 MG/100 ML VIAL IV PRN (13:45)
[2022-03-16] MEDS: Propofol 1,000 MG/100 ML VIAL IV PRN ×2 (13:55→20:37)
[2022-03-16 17:07] LABS: Complement-C4 9.7 mg/dL (Not Available)
[2022-03-17] MEDS: Sodium Bicarbonate 150 MEQ in Dextrose 5% in Water 1,000 ML IV SCH (02:51)
[2022-03-17 03:45] LABS: Anion Gap 15 mmol/L (10-20); BUN (Urea Nitrogen) 41 mg/dL (8.4-25.7); Calc. Creatinine Clearance 11 mL/min (70-130); Calcium 8.2 mg/dL (7.8-10.44); Carbon Dioxide 23 mmol/L (23-31); Chloride 104 mmol/L (98-107); Estimated GFR 12; Glucose 99 mg/dL (83-110); Potassium 3.2 mmol/L (3.5-5.1); Sodium 139 mmol/L (136-145)
[2022-03-17 04:03] LABS: Band 16 % (5-11); Eosinophils 2 % (0-10); Hemoglobin 9.6 g/dL (14.0-18.0); Hypochromia SLIGHT = 6-15 cells (100X) (0-5/hpf); Lymphocytes 10 % (21-51); MDiff Complete? YES; Mean Corpuscular HGB CONC 34.7 g/dL (32.0-36.0); Mean Corpuscular Hemoglobin 34.3 pg (27.0-31.0); Mean Corpuscular Volume 98.8 fl (78.0-98.0); Mean Platelet Volume 11.6 fL (7.4-10.4); Monocytes 6 % (0-10); Neutrophil 56 % (42-75); Platelet Count 31 10x3/uL (130-400); Platelet Morphology Comment Appears Decreased; RBC Distribution Width 15.5 % (11.5-14.5); Reactive Lymphocytes 10 % (0-10); Red Blood Cell (RBC) Count 2.79 mill/uL (4.70-6.10); White Blood Cell (WBC) Count 3.3 10x3/uL (4.8-10.8)
[2022-03-17] MEDS: Furosemide 40 MG/4 ML VIAL SLOW IVP SCH ×2 (08:57→20:25)
[2022-03-17] MEDS: Scopolamine 1.5 mg/72 hour Patch TD SCH (08:57)
[2022-03-17] MEDS: Pantoprazole 40 MG VIAL IVP SCH (08:57)
[2022-03-17] MEDS: Senokot S 8.6-50 MG TAB PO SCH ×2 (08:58→20:25)
[2022-03-17] MEDS: Polyethylene Glycol 3350 17 GM Packet PER TUBE SCH (08:58)
[2022-03-17] MEDS: Potassium Chloride 20 MEQ in Premix Bag 1 BAG IVPB SCH ×2 (10:01→11:53)
[2022-03-17] MEDS: Morphine CADD 100 ML IVPB SCH (11:03)
[2022-03-17] MEDS ORDERED: AA 4.25 %/CALCIUM/LYTES/D5W 2,000 ML IV SCH (14:00)
[2022-03-17] MEDS: D5W-AA 4.25% with LYTES 1,000 ML IV SCH (14:48)
[2022-03-17] MEDS: Propofol 1,000 MG/100 ML VIAL IV PRN (21:05)
[2022-03-18] MEDS: Morphine CADD 100 ML IVPB SCH ×2 (01:26→16:24)
[2022-03-18 02:51] LABS: #Lymphocytes 0.6 thou/uL (1.20-3.40); #Monocytes 0.4 thou/uL (0.11-0.59); #Neutrophils 2.4 thou/uL (1.40-6.50); %Eosinophils 0.9 % (0.0-10.0); %Lymphocytes 17.9 % (21.0-51.0); %Monocytes 10.3 % (0.0-10.0); %Neutrophils 70.9 % (42.0-75.0); Hemoglobin 9.9 g/dL (14.0-18.0); Mean Corpuscular HGB CONC 34.5 g/dL (32.0-36.0); Mean Corpuscular Hemoglobin 34.1 pg (27.0-31.0); Mean Corpuscular Volume 99.1 fl (78.0-98.0); Mean Platelet Volume 11.5 fL (7.4-10.4); Platelet Count 32 10x3/uL (130-400); RBC Distribution Width 15.5 % (11.5-14.5); Red Blood Cell (RBC) Count 2.88 mill/uL (4.70-6.10); White Blood Cell (WBC) Count 3.4 10x3/uL (4.8-10.8)
[2022-03-18 03:13] LABS: Anion Gap 19 mmol/L (10-20); BUN (Urea Nitrogen) 42 mg/dL (8.4-25.7); Calc. Creatinine Clearance 11 mL/min (70-130); Calcium 7.8 mg/dL (7.8-10.44); Carbon Dioxide 22 mmol/L (23-31); Chloride 101 mmol/L (98-107); Estimated GFR 13; Glucose 134 mg/dL (83-110); Potassium 3.7 mmol/L (3.5-5.1); Sodium 138 mmol/L (136-145)
[2022-03-18] MEDS: D5W-AA 4.25% with LYTES 1,000 ML IV SCH ×2 (03:58→17:45)
[2022-03-18] MEDS: Sodium Bicarbonate 150 MEQ in Dextrose 5% in Water 1,000 ML IV SCH (05:17)
[2022-03-18] MEDS: Furosemide 40 MG/4 ML VIAL SLOW IVP SCH ×2 (09:24→20:44)
[2022-03-18] MEDS: Senokot S 8.6-50 MG TAB PO SCH ×3 (09:25→20:35)
[2022-03-18] MEDS: Polyethylene Glycol 3350 17 GM Packet PER TUBE SCH ×2 (09:25→09:35)
[2022-03-18] MEDS: Propofol 1,000 MG/100 ML VIAL IV PRN ×2 (09:25→22:43)
[2022-03-18] MEDS: Pantoprazole 40 MG VIAL IVP SCH (09:25)
[2022-03-18] MEDS ORDERED: Merrem (PEDI) 500 MG in Syringe 0 ML IVPB SCH (11:45)
[2022-03-18] MEDS ORDERED: Meropenem 1 GM in Sodium Chloride 0.9% 100 ML IVPB SCH (11:45)
[2022-03-18] MEDS: Meropenem 500 MG in Sodium Chloride 0.9% 100 ML IVPB SCH (20:12)
[2022-03-19] MEDS: Sodium Bicarbonate 150 MEQ in Dextrose 5% in Water 1,000 ML IV SCH (03:49)
[2022-03-19] MEDS: D5W-AA 4.25% with LYTES 1,000 ML IV SCH ×2 (05:08→17:47)
[2022-03-19] MEDS: Morphine CADD 100 ML IVPB SCH ×2 (05:08→17:52)
[2022-03-19] MEDS: Propofol 1,000 MG/100 ML VIAL IV PRN ×2 (09:55→17:46)
[2022-03-19] MEDS: Furosemide 40 MG/4 ML VIAL SLOW IVP SCH ×3 (09:56→20:59)
[2022-03-19] MEDS: Pantoprazole 40 MG VIAL IVP SCH (09:56)
[2022-03-19] MEDS: Meropenem 500 MG in Sodium Chloride 0.9% 100 ML IVPB SCH ×2 (09:56→20:21)
[2022-03-19] MEDS: Senokot S 8.6-50 MG TAB PO SCH ×2 (09:57→20:21)
[2022-03-19] MEDS: Polyethylene Glycol 3350 17 GM Packet PER TUBE SCH (09:57)
[2022-03-19 12:30] LABS: Albumin 2.5 g/dL (3.4-4.8); Anion Gap 17 mmol/L (10-20); BUN (Urea Nitrogen) 51 mg/dL (8.4-25.7); BUN/Creatinine Ratio 12.38; Calc. Creatinine Clearance 13 mL/min (70-130); Calcium 7.8 mg/dL (7.8-10.44); Carbon Dioxide 26 mmol/L (23-31); Chloride 94 mmol/L (98-107); Estimated GFR 14; Glucose 104 mg/dL (83-110); Phosphorus 5.1 mg/dL (2.3-4.7); Potassium 4.5 mmol/L (3.5-5.1); Sodium 132 mmol/L (136-145)
[2022-03-20 03:33] LABS: Albumin 2.4 g/dL (3.4-4.8); Anion Gap 14 mmol/L (10-20); BUN (Urea Nitrogen) 59 mg/dL (8.4-25.7); BUN/Creatinine Ratio 14.64; Calc. Creatinine Clearance 13 mL/min (70-130); Calcium 7.8 mg/dL (7.8-10.44); Carbon Dioxide 27 mmol/L (23-31); Chloride 93 mmol/L (98-107); Estimated GFR 14; Glucose 94 mg/dL (83-110); Phosphorus 5.3 mg/dL (2.3-4.7); Potassium 4.4 mmol/L (3.5-5.1); Sodium 130 mmol/L (136-145)
[2022-03-20 03:52] LABS: Anisocytosis SLIGHT = 6-15 cells (100X) (0-5/hpf); Band 8 % (5-11); Eosinophils 1 % (0-10); Hemoglobin 10.2 g/dL (14.0-18.0); Lymphocytes 17 % (21-51); MDiff Complete? YES; Macrocytosis SLIGHT = 6-15 cells (100X) (0-5/hpf); Mean Corpuscular HGB CONC 32.4 g/dL (32.0-36.0); Mean Corpuscular Hemoglobin 32.8 pg (27.0-31.0); Mean Platelet Volume 10.5 fL (7.4-10.4); Monocytes 10 % (0-10); Neutrophil 62 % (42-75); Ovalocytes SLIGHT = 2-5 cells (100X) (0-1/hpf); Platelet Count 43 10x3/uL (130-400); Platelet Morphology Comment Appears Decreased; RBC Distribution Width 15.2 % (11.5-14.5); Reactive Lymphocytes 1 % (0-10); Red Blood Cell (RBC) Count 3.11 mill/uL (4.70-6.10); White Blood Cell (WBC) Count 3.1 10x3/uL (4.8-10.8)
[2022-03-20] MEDS: Furosemide 40 MG/4 ML VIAL SLOW IVP SCH ×3 (05:26→21:14)
[2022-03-20] MEDS: D5W-AA 4.25% with LYTES 1,000 ML IV SCH ×2 (06:06→19:33)
[2022-03-20] MEDS: Morphine CADD 100 ML IVPB SCH ×2 (06:24→18:37)
[2022-03-20] MEDS: Scopolamine 1.5 mg/72 hour Patch TD SCH (08:58)
[2022-03-20] MEDS: Senokot S 8.6-50 MG TAB PO SCH ×2 (09:00→20:50)
[2022-03-20] MEDS: Pantoprazole 40 MG VIAL IVP SCH (09:00)
[2022-03-20] MEDS: Polyethylene Glycol 3350 17 GM Packet PER TUBE SCH (09:00)
[2022-03-20] MEDS: Meropenem 500 MG in Sodium Chloride 0.9% 100 ML IVPB SCH ×2 (09:40→21:14)
[2022-03-20] MEDS ORDERED: Furosemide 40 MG/4 ML VIAL SLOW IVP SCH (09:45)
[2022-03-20] MEDS: Propofol 1,000 MG/100 ML VIAL IV PRN ×2 (10:28→18:38)
[2022-03-21] MEDS: Furosemide 40 MG/4 ML VIAL SLOW IVP SCH (04:56)
[2022-03-21] MEDS: Propofol 1,000 MG/100 ML VIAL IV PRN ×2 (05:52→18:55)
[2022-03-21] MEDS: Morphine CADD 100 ML IVPB SCH (07:18)
[2022-03-21] MEDS: D5W-AA 4.25% with LYTES 1,000 ML IV SCH ×3 (07:19→20:21)
[2022-03-21] MEDS ORDERED: Furosemide 40 MG/4 ML VIAL SLOW IVP SCH (07:45)
[2022-03-21] MEDS ORDERED: Furosemide 100 MG/10 ML VIAL SLOW IVP SCH (08:00)
[2022-03-21 08:40] LABS: ALT (SGPT) Less than 7 U/L (8-55); AST (SGOT) 16 U/L (5-34); Albumin 2.4 g/dL (3.4-4.8); Alkaline Phosphatase 67 U/L (40-110); Anion Gap 18 mmol/L (10-20); BUN (Urea Nitrogen) 74 mg/dL (8.4-25.7); Bilirubin, Total 0.3 mg/dL (0.2-1.2); Calc. Creatinine Clearance 14 mL/min (70-130); Calcium 7.8 mg/dL (7.8-10.44); Carbon Dioxide 23 mmol/L (23-31); Chloride 90 mmol/L (98-107); Estimated GFR 16; Globulin 2.9 g/dL (2.4-3.5); Glucose 92 mg/dL (83-110); Potassium 4.9 mmol/L (3.5-5.1); Protein, Total 5.3 g/dL (5.8-8.1); Sodium 126 mmol/L (136-145)
[2022-03-21] MEDS: Albumin 25% 25 GM/100 ML BOT IVPB SCH ×2 (09:15→15:14)
[2022-03-21] MEDS: Pantoprazole 40 MG VIAL IVP SCH (09:17)
[2022-03-21] MEDS: Senokot S 8.6-50 MG TAB PO SCH ×2 (09:18→20:22)
[2022-03-21] MEDS: Polyethylene Glycol 3350 17 GM Packet PER TUBE SCH (09:18)
[2022-03-21] MEDS: Meropenem 500 MG in Sodium Chloride 0.9% 100 ML IVPB SCH ×2 (09:26→20:21)
[2022-03-21] MEDS: Furosemide 100 MG in Sodium Chloride 0.9% 100 ML IVPB SCH ×2 (12:25→21:19)
[2022-03-21] MEDS ORDERED: Fentanyl BOLUS 250 ML IVPB PRN (14:00)
[2022-03-21] MEDS: Fentanyl CADD 100 ML IV SCH (22:01)
[2022-03-22 04:01] LABS: ALT (SGPT) Less than 7 U/L (8-55); AST (SGOT) 14 U/L (5-34); Albumin 2.8 g/dL (3.4-4.8); Alkaline Phosphatase 72 U/L (40-110); Anion Gap 17 mmol/L (10-20); BUN (Urea Nitrogen) 83 mg/dL (8.4-25.7); Bilirubin, Total 0.3 mg/dL (0.2-1.2); Calc. Creatinine Clearance 14 mL/min (70-130); Calcium 7.8 mg/dL (7.8-10.44); Carbon Dioxide 23 mmol/L (23-31); Chloride 89 mmol/L (98-107); Estimated GFR 16; Globulin 2.3 g/dL (2.4-3.5); Glucose 77 mg/dL (83-110); Potassium 5.4 mmol/L (3.5-5.1); Protein, Total 5.1 g/dL (5.8-8.1); Sodium 124 mmol/L (136-145)
[2022-03-22] MEDS: Propofol 1,000 MG/100 ML VIAL IV PRN ×2 (04:30→18:13)
[2022-03-22] MEDS: Senokot S 8.6-50 MG TAB PO SCH ×2 (08:23→21:00)
[2022-03-22] MEDS: Polyethylene Glycol 3350 17 GM Packet PER TUBE SCH (08:23)
[2022-03-22] MEDS: Furosemide 100 MG in Sodium Chloride 0.9% 100 ML IVPB SCH ×2 (08:24→19:30)
[2022-03-22] MEDS: Meropenem 500 MG in Sodium Chloride 0.9% 100 ML IVPB SCH ×2 (09:00→21:39)
[2022-03-22] MEDS: Albumin 25% 25 GM/100 ML BOT IVPB SCH ×2 (09:01→14:45)
[2022-03-22] MEDS: Pantoprazole 40 MG VIAL IVP SCH (09:02)
[2022-03-22] MEDS ORDERED: Chlorothiazide Sodium 500 MG VIAL IV SCH (09:45)
[2022-03-22] MEDS ORDERED: Amino Acids 4.25 %/Dextrose 5% 1,000 ML IV SCH (10:00)
[2022-03-22] MEDS ORDERED: Sterile Water 20 ML ONE (10:37)
[2022-03-22 16:14] VITALS: BMI 20.9
[2022-03-22] MEDS: Fentanyl CADD 100 ML IV SCH (16:44)
[2022-03-22] MEDS ORDERED: Dextrose 50% Abboject 50 ML SYRINGE SLOW IVP PRN (23:12)
[2022-03-22] MEDS ORDERED: Dextrose 5% in Water 1,000 ML IV PRN ×2 (23:12→23:15)
[2022-03-22] MEDS ORDERED: Dextrose 50% Abboject 50 ML SYRINGE IVP PRN (23:15)
[2022-03-23] MEDS ORDERED: Dextrose 5 % And 0.9 % NaCl 1,000 ML IV SCH (02:45)
[2022-03-23] MEDS: Propofol 1,000 MG/100 ML VIAL IV PRN (06:44)
[2022-03-23] MEDS: Furosemide 100 MG in Sodium Chloride 0.9% 100 ML IVPB SCH ×3 (06:52→19:18)
[2022-03-23 07:37] LABS: Hemoglobin 8.4 g/dL (14.0-18.0); Mean Corpuscular Hemoglobin 33.4 pg (27.0-31.0); Mean Platelet Volume 9.5 fL (7.4-10.4); Platelet Count 69 10x3/uL (130-400); RBC Distribution Width 14.9 % (11.5-14.5); White Blood Cell (WBC) Count 3.1 10x3/uL (4.8-10.8)
[2022-03-23 07:48] LABS: ALT (SGPT) Less than 7 U/L (8-55); AST (SGOT) 14 U/L (5-34); Albumin 2.9 g/dL (3.4-4.8); Alkaline Phosphatase 90 U/L (40-110); Anion Gap 17 mmol/L (10-20); BUN (Urea Nitrogen) 90 mg/dL (8.4-25.7); Bilirubin, Total 0.4 mg/dL (0.2-1.2); Calc. Creatinine Clearance 14 mL/min (70-130); Calcium 7.6 mg/dL (7.8-10.44); Carbon Dioxide 26 mmol/L (23-31); Chloride 88 mmol/L (98-107); Estimated GFR 15; Globulin 2.3 g/dL (2.4-3.5); Glucose 66 mg/dL (83-110); Potassium 5.6 mmol/L (3.5-5.1); Protein, Total 5.2 g/dL (5.8-8.1); Sodium 125 mmol/L (136-145)
[2022-03-23] MEDS ORDERED: Dextrose 50% Abboject 50 ML SYRINGE SLOW IVP SCH (08:42)
[2022-03-23] MEDS ORDERED: Insulin Regular 300 UNITS/3 ML VIAL IVP SCH (08:45)
[2022-03-23] MEDS ORDERED: Albuterol Sulfate 2.5 mg/3 ml Neb NEB SCH (08:45)
[2022-03-23] MEDS ORDERED: Albumin 25% 25 GM/100 ML BOT IVPB SCH (08:45)
[2022-03-23 08:58] LABS: Band 17 % (5-11); Eosinophils 1 % (0-10); Lymphocytes 27 % (21-51); MDiff Complete? YES; Metamyelocyte 1 % (0-0); Monocytes 12 % (0-10); Myelocyte 2 % (0-0); Neutrophil 40 % (42-75); Platelet Morphology Comment Appears Decreased; RBC Morphology Normal
[2022-03-23] MEDS ORDERED: Chlorothiazide Sodium 500 MG VIAL IV SCH (09:00)
[2022-03-23] MEDS: Dextrose 10% in Water 1,000 ML IV SCH (09:45)
[2022-03-23] MEDS: Senokot S 8.6-50 MG TAB PO SCH ×2 (09:59→20:12)
[2022-03-23] MEDS: Polyethylene Glycol 3350 17 GM Packet PER TUBE SCH (09:59)
[2022-03-23] MEDS: Meropenem 500 MG in Sodium Chloride 0.9% 100 ML IVPB SCH ×2 (10:21→21:00)
[2022-03-23] MEDS: Pantoprazole 40 MG VIAL IVP SCH (10:21)
[2022-03-23] MEDS: Scopolamine 1.5 mg/72 hour Patch TD SCH (10:22)
[2022-03-23 10:35] VITALS: BP 114/48
[2022-03-23] MEDS: SODIUM CHLORIDE 0.9% IVPB SCH ×2 (12:21→23:49)
[2022-03-23] MEDS: CHLOROTHIAZIDE SODIUM IVPB SCH ×2 (12:21→23:49)
[2022-03-23 18:40] VITALS: TEMP 96.8
[2022-03-24] MEDS: Furosemide 100 MG in Sodium Chloride 0.9% 100 ML IVPB SCH ×2 (01:04→05:49)
[2022-03-24] MEDS: Dextrose 10% in Water 1,000 ML IV SCH (05:47)
[2022-03-24] MEDS ORDERED: Morphine 4 MG/ML VIAL SLOW IVP PRN (08:27)
[2022-03-24] MEDS: Meropenem 500 MG in Sodium Chloride 0.9% 100 ML IVPB SCH (08:54)
[2022-03-24] MEDS: Propofol 1,000 MG/100 ML VIAL IV PRN (08:55)
[2022-03-24] MEDS: Polyethylene Glycol 3350 17 GM Packet PER TUBE SCH (08:55)
[2022-03-24] MEDS: Pantoprazole 40 MG VIAL IVP SCH (08:55)
[2022-03-24] MEDS: Senokot S 8.6-50 MG TAB PO SCH (08:56)
[2022-03-24] MEDS: SODIUM CHLORIDE 0.9% IVPB SCH (11:07)
[2022-03-24] MEDS: CHLOROTHIAZIDE SODIUM IVPB SCH (11:07)
== END 2022-03-24 10:49 | disposition expired | DRG 870 ==
LOC: ERS 18:16 → CCU 21:44
PROVIDERS: ADMIT Family Medicine; ATTEND Family Medicine
PROC: 3E033XZ Introduction of Vasopressor into Peripheral Vein, Percutaneous Approach (ICD-10-PCS; 2022-03-06)
PROC: 5A1945Z Respiratory Ventilation, 24-96 Consecutive Hours (ICD-10-PCS; 2022-03-06)
PROC: 0D9670Z Drainage of Stomach with Drainage Device, Via Natural or Artificial Opening (ICD-10-PCS; 2022-03-06)
PROC: 0BH17EZ Insertion of Endotracheal Airway into Trachea, Via Natural or Artificial Opening (ICD-10-PCS; 2022-03-06)
PROC: 06HY33Z Insertion of Infusion Device into Lower Vein, Percutaneous Approach (ICD-10-PCS; 2022-03-06)
PROC: 3E03329 Introduction of Other Anti-infective into Peripheral Vein, Percutaneous Approach (ICD-10-PCS; 2022-03-06)
PROC: 5A1955Z Respiratory Ventilation, Greater than 96 Consecutive Hours (ICD-10-PCS; principal; 2022-03-09)
PROC: 0BH17EZ Insertion of Endotracheal Airway into Trachea, Via Natural or Artificial Opening (ICD-10-PCS; 2022-03-09)
PROC: 5A12012 Performance of Cardiac Output, Single, Manual (ICD-10-PCS; 2022-03-09)
PROC: 5A2204Z Restoration of Cardiac Rhythm, Single (ICD-10-PCS; 2022-03-09)
DX: A41.9 Sepsis, unspecified organism (principal); R65.21 Severe sepsis with septic shock; J69.0 Pneumonitis due to inhalation of food and vomit; Z66 Do not resuscitate; Z51.5 Encounter for palliative care; Z20.822 Contact with and (suspected) exposure to COVID-19; E43 Unspecified severe protein-calorie malnutrition; G93.41 Metabolic encephalopathy; J96.01 Acute respiratory failure with hypoxia; J18.9 Pneumonia, unspecified organism; K65.8 Other peritonitis; N17.0 Acute kidney failure with tubular necrosis; K63.1 Perforation of intestine (nontraumatic); D61.818 Other pancytopenia; E87.20 Acidosis, unspecified; R64 Cachexia; R57.8 Other shock; I46.8 Cardiac arrest due to other underlying condition; D63.8 Anemia in other chronic diseases classified elsewhere; E78.5 Hyperlipidemia, unspecified; R13.12 Dysphagia, oropharyngeal phase; I12.9 Hypertensive chronic kidney disease with stage 1 through stage 4 chronic kidney disease, or unspecified chronic kidney disease; N18.9 Chronic kidney disease, unspecified; E87.5 Hyperkalemia; E86.9 Volume depletion, unspecified; D63.1 Anemia in chronic kidney disease; E87.6 Hypokalemia; E83.42 Hypomagnesemia; Z78.1 Physical restraint status; Z79.899 Other long term (current) drug therapy; Z87.891 Personal history of nicotine dependence; Z68.21 Body mass index [BMI] 21.0-21.9, adult
CPT/HCPCS: 36415; 36416; 36430; 36600; 70450; 70496; 70498; 70551; 71045; 71250; 74018; 74176; 76770; 80048; 80053; 80061; 80069; 80076; 81003; 81015; 82040; 82274; 82533; 82550; 82553; 82570; 82728; 82805; 83540; 83550; 83605; 83735; 83880; 84100; 84156; 84300; 84484; 84540; 85025; 86140; 86160; 86850; 86900; 86901; 87040; 87086; 87811; 93005; 93010; 93306; 94002; 94003; 94640; 95712; 95819; 95957; C9113; J0171; J0461; J1644; J1650; J1756; J1815; J1940; J2185; J2250; J2270; J2274; J2543; J2704; J3010; J3370-JW; J3475; J3480; J3490; J7042; J7050; J7070; J7120; J7611; J7999; P9016; P9047; Q9967